=== PATIENT | male | born 1955 | race Caucasian/White ===

== ENCOUNTER 2016-09-21 10:29 | Emergency (ER) | payer OTHER ==
[2016-09-21 10:19] LABS: BASOPHILS 0.3 %; BASOPHILS ABSOLUTE 0.02 10/3/uL (0.0-0.16); EOSINOPHILS 2.3 %; EOSINOPHILS ABSOLUTE 0.17 10/3/uL (0.0-0.53); HEMATOCRIT 42.8 % (40.0-51.0); HEMOGLOBIN 14.8 g/dL (13.6-17.8); IMMATURE GRANULOCYTES 0.1 %; IMMATURE GRANULOCYTES ABSOLUTE 0.01 10/3/uL (0.0-0.11); LYMPHOCYTES 17.5 %; LYMPHOCYTES ABSOLUTE 1.27 10/3/uL (0.67-4.30); MEAN CORPUS HGB CONC 34.6 g/dL (32.0-36.0); MEAN CORPUSCULAR HEMOGLOB 33.8 pg (26.0-34.0); MEAN PLATELET VOLUME 9.7 fL (9.2-13.0); MONOCYTES 11.9 %; MONOCYTES ABSOLUTE 0.86 10/3/uL (0.21-1.20); NEUTROPHILS 67.9 %; NEUTROPHILS ABSOLUTE 4.92 10/3/uL (2.02-8.40); PLATELET COUNT 203 10/3/uL (150-400); RBC DISTRIBUTION WIDTH 14.2 % (12.0-16.0); RED CELL COUNT 4.38 10/6/uL (4.7-6.1); WHITE BLOOD CELLS 7.3 10/3/uL (4.5-10.5)
[2016-09-21 10:21] LABS: MANUAL DIFF NO %; MEAN CORPUSCULAR VOLUME 97.7 fL (80-100)
[2016-09-21 10:27] LABS: INTERNATIONAL NORMAL RATI 2.5 UNITS (-); PARTIAL THROMBO TIME 35.6 SEC (22.5-37.2); PROTIME (NOT ORD) 26.7 SEC (12.0-14.5)
[~2016-09-21 10:29] MED LIST: MICROZIDE PO; MULTIPLE VIT PO; NEXIUM20 M1 PO; NORV10 PO; PERCOCET1 TA2 PO; PLAVIX PO; PR25 PO; PRILO PO; PRIN10 PO; REG5 PO; X5 PO; XANAX1 MG PO; ZANTAC150 MG PO
[2016-09-21 10:34] LABS: ALBUMIN 3.7 G/DL (3.5-5.0); BUN (BLOOD UREA NITROGEN) 10 MG/DL (6-23); CALCIUM, SERUM 8.6 MG/DL (8.5-10.4); CHLORIDE, SERUM 107 MMOL/L (96-112); CO2 (CARBON DIOXIDE) 24 MMOL/L (24-34); CREATININE 1.01 MG/DL (0.70-1.30); GFR AFRICAN AMERICAN 93 ML/MIN (>=60); GFR NON AFRICAN AMERICAN 80 ML/MIN (>=60); GLOBULIN 3.7 G/DL (2.5-4.1); GLUCOSE, SERUM 81 MG/DL (60-99); POTASSIUM, SERUM 3.6 MMOL/L (3.5-5.3); SGPT(ALT) 33 U/L (5-65); SODIUM, SERUM 139 MMOL/L (135-148); TOTAL BILIRUBIN 0.4 MG/DL (0-1.2); TOTAL PROTEIN 7.4 G/DL (6.0-8.5)
[2016-09-21 10:35] LABS: ALKALINE PHOSPHATASE 77 U/L (45-117)
[2016-09-21 10:37] LABS: SGOT(AST) 25 U/L (5-40)
[2016-12-21] MEDS ORDERED: X5 PO (15:11)
[2016-12-21] MEDS ORDERED: SPIRIVA INH (15:13)
[2016-12-21] MEDS ORDERED: XARELTO20 MG PO (15:13)
[2016-12-21] MEDS ORDERED: PRIN10 PO (15:15)
[2016-12-21] MEDS ORDERED: FOLIC PO (15:15)
[2016-12-21] MEDS ORDERED: PRILO PO (15:15)
[2016-12-21] MEDS ORDERED: LIPITOR20 PO (15:16)
[2016-12-21] MEDS ORDERED: COMBIVENT RESPIM4 GM INH (15:16)
[2016-12-21] MEDS ORDERED: *UNABLE2 (15:17)
[2016-12-21] MEDS ORDERED: NORV10 PO (15:17)
[2016-12-21] MEDS ORDERED: TYLENOL 4 PO (16:34)
== END 2016-09-21 12:28 | disposition home or self-care (01) ==
LOC: ER 10:29
PROVIDERS: Hospitalist
PROC: 2W3FX1Z Immobilization of Left Hand using Splint (ICD-10-PCS; principal; 2016-09-21)
DX: S62.617A Displaced fracture of proximal phalanx of left little finger, initial encounter for closed fracture (principal); I10 Essential (primary) hypertension; J44.9 Chronic obstructive pulmonary disease, unspecified; K21.9 Gastro-esophageal reflux disease without esophagitis; Z86.19 Personal history of other infectious and parasitic diseases; F17.200 Nicotine dependence, unspecified, uncomplicated; Z79.899 Other long term (current) drug therapy; W19.XXXA Unspecified fall, initial encounter
CPT/HCPCS: 70450; 73080-LT; 73110-LT; 73130-LT; 80053; 85025; 85610; 85730; 99284

== ENCOUNTER 2017-01-18 16:21 | Emergency (ER) | payer OTHER ==
[~2017-01-18 16:21] MED LIST changes: +*UNABLE2; +COMBIVENT RESPIM4 GM INH; +FOLIC PO; +LIPITOR20 PO; +SPIRIVA INH; +TYLENOL 4 PO; +XARELTO20 MG PO
[2017-01-18 20:08] LABS: ASCORBIC ACID (UR NOT ORDER) NEG (NEG); BILIRUBIN, URINE NEGATIVE (NEG); ER URINALYSIS TAT 0 Hrs 10 Mins; KETONE, URINE TRACE MG/DL (NEG); LEUKOCYTE ESTERASE(NOT OR NEG (NEG); NITRITE (URINE) NEG (NEG); WBC (NOT ORDERED) (RFLEX) 1 (0-5)
[2017-01-18 20:25] LABS: AMPHETAMINES (NOT ORD) NEG (NEG); BARBITURATES (NOT ORDERED NEG (NEG); BENZODIAZEPINES (NOT ORD) POS (NEG); CANNABINOIDS (THC) NEG (NEG); COCAINE (NOT ORDERED) NEG (NEG); OPIATES POS (NEG); PHENCYCLIDINE(PCP) NEG (NEG); TRICYCLICS NEG (NEG)
[2017-01-18 21:35] LABS: BASOPHILS 0.1 %; BASOPHILS ABSOLUTE 0.02 10/3/uL (0.0-0.16); EOSINOPHILS 1.5 %; EOSINOPHILS ABSOLUTE 0.23 10/3/uL (0.0-0.53); ER CBC TAT 0 Hrs 05 Mins; HEMATOCRIT 39.4 % (40.0-51.0); HEMOGLOBIN 12.9 g/dL (13.6-17.8); IMMATURE GRANULOCYTES 0.3 %; IMMATURE GRANULOCYTES ABSOLUTE 0.05 10/3/uL (0.0-0.11); LYMPHOCYTES 6.8 %; LYMPHOCYTES ABSOLUTE 1.04 10/3/uL (0.67-4.30); MEAN CORPUS HGB CONC 32.7 g/dL (32.0-36.0); MEAN PLATELET VOLUME 9.1 fL (9.2-13.0); MONOCYTES ABSOLUTE 0.92 10/3/uL (0.21-1.20); NEUTROPHILS 85.3 %; PLATELET COUNT 262 10/3/uL (150-400); RBC DISTRIBUTION WIDTH 15.3 % (12.0-16.0); RED CELL COUNT 4.03 10/6/uL (4.7-6.1); WHITE BLOOD CELLS 15.3 10/3/uL (4.5-10.5)
[2017-01-18 21:37] LABS: MANUAL DIFF NO %; MEAN CORPUSCULAR VOLUME 97.8 fL (80-100)
[2017-01-18 21:46] LABS: INTERNATIONAL NORMAL RATI 2.2 UNITS (-); PARTIAL THROMBO TIME 49.5 SEC (22.5-37.2)
[2017-01-18 21:48] LABS: D-DIMER QUANTITATIVE 0.55 ug/mLFEU (< 0.50)
[2017-01-18 21:55] LABS: ACETAMINOPHEN LEVEL (TYLENOL) < 2.0 MCG/ML (10.0-20.0); ALBUMIN 3.2 G/DL (3.5-5.0); ALCOHOL < 10 MG/DL (0); ALKALINE PHOSPHATASE 79 U/L (45-117); BUN (BLOOD UREA NITROGEN) 13 MG/DL (6-23); CALCIUM, SERUM 8.3 MG/DL (8.5-10.4); CHEST PAIN PROFILE TAT 0 Hrs 25 Mins; CHLORIDE, SERUM 105 MMOL/L (96-112); CO2 (CARBON DIOXIDE) 25 MMOL/L (24-34); CREATININE 0.85 MG/DL (0.70-1.30); DIRECT BILIRUBIN < 0.1 MG/DL (0.0-0.4); GFR AFRICAN AMERICAN 109 ML/MIN (>=60); GFR NON AFRICAN AMERICAN 94 ML/MIN (>=60); GLUCOSE, SERUM 65 MG/DL (60-99); INDIRECT BILIRUBIN(NOT ORDER) 0.1 MG/DL (0.1-0.9); POTASSIUM, SERUM 3.6 MMOL/L (3.5-5.3); SALICYLATE 18.4 MG/DL (-); SGOT(AST) 101 U/L (5-40); SGPT(ALT) 78 U/L (5-65); SODIUM, SERUM 138 MMOL/L (135-148); TOTAL BILIRUBIN 0.2 MG/DL (0-1.2); TOTAL PROTEIN 7.4 G/DL (6.0-8.5); TROPONIN I <0.02 NG/ML (<0.05)
[2017-01-18 22:05] LABS: LACTATE 1.3 MMOL/L (0.3-2.4)
[2017-01-18] MEDS ORDERED: TYLENOL #4 (22:10)
[2017-01-18] MEDS ORDERED: PHENERGAN (22:11)
[2017-01-18] MEDS ORDERED: KEFLEX (22:11)
[2017-01-18] MEDS ORDERED: XANAX (22:12)
[2017-01-18] MEDS ORDERED: NORCO (22:14)
[2017-01-18] MEDS ORDERED: NORVASC (22:15)
[2017-01-18 22:17] LABS: B NATRIURETIC PEPTIDE (BNP) 17.6 PG/ML (< 100.0)
[2017-01-18] MEDS ORDERED: LIPITOR (22:17)
[2017-01-18] MEDS ORDERED: COMBIVENT RESPIMAT (22:17)
[2017-01-18] MEDS ORDERED: PRILOSEC (22:18)
[2017-01-18] MEDS ORDERED: LISINOPRIL (22:18)
[2017-01-18] MEDS ORDERED: SPIRIVA HANDIHALER (22:19)
[2017-01-18] MEDS ORDERED: FOLIC ACID (22:20)
[2017-01-18] MEDS ORDERED: XARELTO (22:20)
[2017-01-18] MEDS ORDERED: PROVENTIL HFA (22:21)
== END 2017-01-19 03:32 | disposition home or self-care (01) ==
LOC: ER 16:21
PROVIDERS: Emergency Medicine
DX: T40.2X1A Poisoning by other opioids, accidental (unintentional), initial encounter (principal); R41.82 Altered mental status, unspecified; S51.001D Unspecified open wound of right elbow, subsequent encounter; E86.0 Dehydration; I10 Essential (primary) hypertension; J44.9 Chronic obstructive pulmonary disease, unspecified; F41.9 Anxiety disorder, unspecified; F17.210 Nicotine dependence, cigarettes, uncomplicated; Z86.19 Personal history of other infectious and parasitic diseases; X58.XXXD Exposure to other specified factors, subsequent encounter; Z79.899 Other long term (current) drug therapy
CPT/HCPCS: 70450; 71010; 71275; 80048; 80076; 80305; 80307; 81001; 82140; 83605; 83690; 83735; 83880; 84484; 85025; 85379; 85610; 85730; 87040; 87070; 87205; 96374; 99285; J0690; Q9967